=== PATIENT | female | born 1955 | race Caucasian/White ===

== ENCOUNTER 2024-06-17 07:11 | Day surgery (SDC) | payer OTHER ==
[~2024-06-17] VITALS: Ht 167.6 cm; Wt 98.4 kg
[~2024-06-17 07:11] MED LIST: Lidocaine HCl/Pf 1% 5 ML VIAL ONE; Povidone-Iodine 450 DROP/30 ML Solution ONE; Tetracaine HCl/Pf 0.5% Opth Soln 4 ml ONE; Triamcinolone Inj Susp 40 MG / ML 1ML Vial ONE
[2024-06-17] MEDS ORDERED: Diazepam 10 MG Tab ONE (07:26)
[2024-06-17] MEDS ORDERED: Ondansetron 4 MG SoluTab MM PRN ×2 (07:50→08:50)
[2024-06-17] MEDS ORDERED: Diazepam 5 MG Tab ONE (08:14)
--- NOTE | 2024-06-17 08:31 | NUR ---
06/17/24 0831 Mei Loaiza BP-153/72 P-55 SPO2 100% 10L BLOW BY O2
[2024-06-17] MEDS ORDERED: Povidone-Iodine 450 DROP/30 ML Solution LEFTEYE SCH (08:50)
[2024-06-17] MEDS ORDERED: Diazepam 5 MG Tab PO SCH (08:50)
[2024-06-17] MEDS ORDERED: PHENYLEPHRINE\\TROPICAMIDE\\TETRACAINE OPHTHALMIC DILATING SOLN LEFTEYE PRN (08:50)
[2024-06-17] MEDS ORDERED: Triamcinolone Inj Susp 40 MG / ML 1ML Vial INJ SCH (08:50)
[2024-06-17] MEDS ORDERED: Lidocaine HCl/Pf 1% 5 ML VIAL XX SCH (08:50)
[2024-06-17] MEDS ORDERED: Diazepam 5 MG Tab PO PRN (08:50)
[2024-06-17] MEDS ORDERED: Balanced Salt Epinephrine Irrigation Solution 500 mL IR SCH (08:50)
[2024-06-17] MEDS ORDERED: Moxifloxacin HCL 0.5 MG/0.1 ML 0.4MLSYR LEFTEYE SCH (08:50)
[2024-06-18] MEDS ORDERED: Balanced Salt Epinephrine Irrigation Solution 500 mL IR SCH (06:00)
[2024-06-18] MEDS ORDERED: Triamcinolone Inj Susp 40 MG / ML 1ML Vial INJ SCH (06:00)
[2024-06-18] MEDS ORDERED: Diazepam 5 MG Tab PO PRN (06:00)
[2024-06-18] MEDS ORDERED: Povidone-Iodine 450 DROP/30 ML Solution LEFTEYE SCH (06:00)
[2024-06-18] MEDS ORDERED: PHENYLEPHRINE\\TROPICAMIDE\\TETRACAINE OPHTHALMIC DILATING SOLN LEFTEYE PRN (06:00)
[2024-06-18] MEDS ORDERED: Lidocaine HCl/Pf 1% 5 ML VIAL XX SCH (06:00)
[2024-06-18] MEDS ORDERED: Diazepam 5 MG Tab PO SCH (06:00)
[2024-06-18] MEDS ORDERED: Moxifloxacin HCL 0.5 MG/0.1 ML 0.4MLSYR LEFTEYE SCH (06:00)
== END 2024-06-17 09:00 | disposition home or self-care (01) ==
LOC: ORSCSDS 07:11
PROVIDERS: Ophthalmology
PROC: 08RK3JZ Replacement of Left Lens with Synthetic Substitute, Percutaneous Approach (ICD-10-PCS; principal; 2024-06-17 08:30)
DX: H25.813 Combined forms of age-related cataract, bilateral (principal)
CPT/HCPCS: A9270; J2003; J3301; V2632

== ENCOUNTER 2024-06-24 09:38 | Day surgery (SDC) | payer OTHER ==
[~2024-06-24] VITALS: Ht 167.6 cm; Wt 96.8 kg
[~2024-06-24 09:38] MED LIST changes: +Balanced Salt Epinephrine Irrigation Solution 500 mL IR SCH; +Diazepam 5 MG Tab PO PRN; +Diazepam 5 MG Tab PO SCH; -Lidocaine HCl/Pf 1% 5 ML VIAL ONE; +Lidocaine HCl/Pf 1% 5 ML VIAL XX SCH; +Moxifloxacin HCL 0.5 MG/0.1 ML 0.4MLSYR RIGHTEYE SCH; +Ondansetron 4 MG SoluTab MM PRN; +PHENYLEPHRINE\\TROPICAMIDE\\TETRACAINE OPHTHALMIC DILATING SOLN RIGHTEYE PRN; +Povidone-Iodine 450 DROP/30 ML Solution RIGHTEYE SCH; +Triamcinolone Inj Susp 40 MG / ML 1ML Vial INJ SCH
[2024-06-24] MEDS ORDERED: Diazepam 10 MG Tab ONE (10:24)
--- NOTE | 2024-06-24 11:39 | NUR ---
06/24/24 1139 Donya Dewey 1110: REASSESSED ANXIETY, PT REPORTS "NONE"
--- NOTE | 2024-06-24 11:46 | NUR ---
06/24/24 1146 Yokasta Bernard BP: 148/80 98 HR PULSE 49
[2024-06-24] MEDS ORDERED: Erythromycin 0.5% Opth Oint 1 gm ONE (11:56)
--- NOTE | 2024-06-24 12:06 | NUR ---
06/24/[address] IN TO SPEAK WITH PT. STATES THAT SHE HAS A CORNEA ABRASION AND ORDERED ERYTHROMYCIN OINTMENT TO BE USED 4X A DAY PRN. STATES EYE WILL PROBABLY BE PAINFUL FOR 3-4 DAYS. TO CONTACT IF CONTINUES TO BE PAINFUL - TO FOLLOWUP WITH HIM.
[2024-06-24] MEDS ORDERED: Acetaminophen 500 MG Tab ONE (12:08)
== END 2024-06-24 12:37 | disposition home or self-care (01) ==
LOC: ORSCSDS 09:38
PROVIDERS: Ophthalmology
PROC: 08RJ3JZ Replacement of Right Lens with Synthetic Substitute, Percutaneous Approach (ICD-10-PCS; principal; 2024-06-24 11:30)
DX: H25.811 Combined forms of age-related cataract, right eye (principal); Z96.1 Presence of intraocular lens; Z79.899 Other long term (current) drug therapy
CPT/HCPCS: A9270; J3301; V2632